=== PATIENT | female | born 1990 | race Caucasian/White ===

== ENCOUNTER 2021-08-21 02:03 | Emergency (ER) | payer MEDICAID ==
[~2021-08-21] VITALS: Ht 152.4 cm; Wt 95.3 kg
--- NOTE | 2021-08-21 02:20 | NUR ---
Dr. Silva at bedside for MSE.
[2021-08-21] MEDS ORDERED: OXYCODONE/APAP 5-325 MG TABLET PO ONE (02:30)
--- NOTE | 2021-08-21 02:31 | NUR ---
Xray at bedside.
[2021-08-21] MEDS ORDERED: OXYCODONE/APAP 5-325 MG TABLET ONE (02:37)
[2021-08-21] MEDS ORDERED: OXYC-128 PO (02:44)
--- NOTE | 2021-08-21 02:55 | NUR ---
Crutch instructions and demo given to pt. Pt returned good crutch demo and confirmed understanding of teaching. Pt is otherwise healthy individual with no other health concers. DC instuctions given, pt acknowledges understanding.
[2021-08-21 03:17] VITALS: BP 116/72
== END 2021-08-21 03:05 | disposition home or self-care (01) ==
LOC: ER 02:09
DX: S83.91XA Sprain of unspecified site of right knee, initial encounter (principal); W01.0XXA Fall on same level from slipping, tripping and stumbling without subsequent striking against object, initial encounter; Y92.032 Bedroom in apartment as the place of occurrence of the external cause
CPT/HCPCS: 73562; A4663